=== PATIENT | female | born 1945 | race Caucasian/White ===

== ENCOUNTER 2023-09-30 18:47 | Inpatient (IN) ==
[2023-09-30] MEDS: KETOROLAC TROMETHAMINE 15 MG/ML VIAL IV ONE (19:45)
[2023-09-30] MEDS: ONDANSETRON INJ 2 MG/ML 2 ML VIAL IV STA (19:45)
[2023-09-30 19:57] LABS: Basophils # (auto) 0.05 K/uL (0.00-0.20); Basophils % (auto) 0.6 %; Eosinophils # (auto) 0.13 K/uL (0.00-0.50); Eosinophils % (auto) 1.4 %; Hemoglobin 12.2 g/dl (12.0-16.0); Immature Granulocytes # (auto) 0.06 K/uL (0.01-0.20); Immature Granulocytes % (auto) 0.7 %; Lymphocytes # (auto) 1.44 K/uL (1.20-3.40); Mean Corpuscular Hemoglobin 28.8 pg (25.0-34.0); Mean Corpuscular Hgb Conc 32.1 g/dL (32.0-36.0); Mean Corpuscular Volume 89.8 fL (80.0-100.0); Mean Platelet Volume 9.5 fL (9.4-12.4); Monocytes # (auto) 0.71 K/uL (0.11-0.59); Monocytes % (auto) 7.9 %; Neutrophils % (auto) 73.4 %; Platelet Count 468 K/uL (130-400); RDW Coefficient of Variation 13.2 % (11.5-14.5); RDW Standard Deviation 43.9 fL (36.4-46.3); Red Blood Count 4.23 M/uL (4.20-5.40); White Blood Count 8.99 K/ul (4.8-10.8)
[2023-09-30 20:14] LABS: Albumin Globulin Ratio 1.4 (0.9-2); Albumin Level 4.3 gm/dl (3.4-5.0); Bilirubin,Total 0.4 mg/dl (0.2-1.0); Calcium 10.1 mg/dl (8.6-10.3); Creatinine Clr Calc Pharmacy 39.6 ml/min; Est GFR (African American) 48.1 ml/min; Est GFR (Non-African American) 41.5 ml/min; Magnesium 2.1 mg/dl (1.7-2.4); Potassium 3.2 mmol/L (3.5-5.1); Total Protein 7.3 gm/dl (6.0-8.3)
[2023-09-30] MEDS: OPTIRAY 320 100ml IV ONE (20:49)
[2023-09-30 21:30] LABS: Appearance Urine Cloudy (Clear); Bacteria Urine Automated 2+ (None Seen); Bilirubin Urine Negative (Negative); Blood Urine Trace (Negative); Color Urine Yellow; Epithelial Cell Urine Auto 0-2 /hpf (0-2); Glucose Urine UA Negative (Negative); Granular Casts Urine Present /lpf (None Prsent); Ketones Urine Trace (Negative); Leukocyte Esterase Urine 3+ (Negative); Nitrite Urine Negative (Negative); Protein Urine 1+ (Negative); Specific Gravity Urine 1.015 (1.000-1.030); Urobilinogen Urine Negative (Negative); WBC Urine Automated >50 /hpf (0-5)
--- NOTE | 2023-09-30 22:47 | Emergency Department Note ---
Impression & Plan Diverticulitis, UTI (urinary tract infection) ED Provider Note NAME: RAMEZ RICCI AGE: 78 SEX: F : 1945 ARRIVES VIA: Walk-In INFORMANT: Patient, ED PROVIDER(S): Srinivasan Soto MD CHIEF COMPLAINT: Diarrhea, diverticulitis HPI: This is a 78-year-old female presenting for diarrhea/diverticulitis. Patient notes that she received antibiotics for 1 to 2 months after her knee surgery. This was from 03 August. She then noted that she has abdominal pain and was diagnosed with diverticulitis. She was given antibiotics for this is a well over the past few days. She is still taking antibiotics. She began having abdominal cramping as well as diarrhea. She notes she is pooping mucus. Her family concern that she may have C. difficile. She also told she may have a UTI. ROS: See above HPI for pertinent positives & negatives. A total of 10 systems reviewed and were otherwise negative. PAST MEDICAL HISTORY: See Below PAST SURGICAL HISTORY: See Below FAMILY HISTORY: See Below SOCIAL HISTORY: See Below HOME MEDICATIONS: See Below ALLERGIES: See Below VITALS: See Below PHYSICAL EXAMINATION: General: resting comfortably in no acute distress Head: Normocephalic and atraumatic Eyes: Normal inspection, extraocular muscles intact Ear, nose, throat: Normal external exam Neck: Normal range of motion Respiratory: lungs clear to auscultation bilaterally Cardiovascular: Regular rate/rhythm, no murmur GI: soft, nontender, no guarding or rebound Extremities: nontender, moves all extremities Neuro: The patient awake and alert, appropriately conversive, no focal deficits, symmetric faces Skin: Warm, dry, and intact MEDICAL DECISION MAKING: This is a 78-year-old female sent for diarrhea. Patient has previous evidence of diverticulitis. Currently taking antibiotics. Currently no pain after Toradol ministration. Otherwise we will do screening blood work and stool studies to rule out C. difficile and other viral illnesses. -Blood work is reviewed showing no leukocytosis or anemia. Slight hypokalemia noted. Creatinine 1.25. -Urinalysis does reveal signs of urinary tract infection at this time. -Currently pending stool studies. -CT imaging ordered at triage is currently pending as well -CT imaging does reveal possible acute diverticulitis despite antibiotics. Otherwise patient made aware of her low density of the adrenal gland lesion. -Patient made aware of findings and with UTI plus diverticulitis, did recommend inpatient admission. Patient agreeable to this plan. Discussed with hospitalist for admission. Differential diagnosis: Diverticulitis, C. difficile, toxic megacolon, SBO ER treatment provided: See below Diagnostics interpreted by me: ECG: None Cardiac Monitoring: An order was placed for continuous cardiac monitoring. The monitor shows a rate of 73 with sinus rhythm. Laboratory studies: As stated above and show below. Imaging studies: See below. Past Med/Surg History Problem List (Updated 10/04/23 @ 12:17 by Srinivasan Soto MD) UTI (urinary tract infection) (Acute) Elevated serum creatinine Adrenal mass Hypokalemia History of melanoma Diabetes mellitus Hyperlipidemia Hypertension Diverticulitis (Acute) Social History Smoking Status: Never smoker Second Hand Exposure: No; Do You Dip or Chew Tobacco: No; Tobacco Cessation Education Requested by Patient: No Hx Alcohol Use: No Hx Substance Use: No Preferred Language: Tamazight Communication Ability: Effective Chemist Pharmaceutical Required: No Beliefs That Will Affect Care: None Current Living Situation: Spouse Other Information That Helps Us Care for You: No Feels Safe at Home: Yes Safety Concerns: Feels Safe At This Time Assistive Devices: Cane and Walker Allergies Allergies Allergy/AdvReac Type Severity Reaction Status Date / Time No Known Allergies Allergy Verified 10/01/23 00:51 Home Meds Home Medications Medication Instructions Recorded Confirmed amlodipine 5 mg tablet 5 mg PO DAILY 10/01/23 10/01/23 ciprofloxacin HCl 500 mg tablet 500 mg PO TID 10/01/23 10/01/23 dulaglutide 0.75 mg/0.5 mL 0.75 mg subcut WK 10/01/23 10/01/23 subcutaneous pen injector (Trulicity) ezetimibe 10 mg tablet 10 mg PO DAILY 10/01/23 10/01/23 insulin glargine 100 unit/mL (3 44 unit subcut PM 10/01/23 10/01/23 mL) subcutaneous pen (Lantus Solostar U-100 Insulin) insulin lispro 100 unit/mL 0 unit subcut TIDM 10/01/23 10/01/23 subcutaneous pen (Humalog KwikPen (U-100) Insulin) latanoprost 0.005 % eye drops 1 drp OPB HS 10/01/23 10/01/23 levothyroxine 75 mcg tablet 75 mcg PO DAILYBB 10/01/23 10/01/23 lisinopril 20 mg tablet 20 mg PO DAILY 10/01/23 10/01/23 metformin 500 mg tablet 1,000 mg PO BID 10/01/23 10/01/23 metronidazole 500 mg tablet 500 mg PO BID 10/01/23 10/01/23 ondansetron 4 mg disintegrating 4 mg PO Q6H PRN Nausea 10/01/23 10/01/23 tablet rosuvastatin 40 mg tablet 40 mg PO DAILY 10/01/23 10/01/23 Results & Data (ED) Vital Signs Vital Signs - 24 hr 09/30/23 18:56 09/30/23 22:30 09/30/23 22:30 Temperature 36.4 C L Temperature Source Temporal Artery Scan Pulse Rate 86 Pulse Rate [Apical] 79 Pulse Rhythm [Apical] Regular Pulse Strength [Apical] Normal Respiratory Rate 16 20 Respiratory Effort / Characteristics Non-Labored Non-Labored Spontaneous Respiratory Depth Normal Normal Respiratory Pattern Regular Blood Pressure 161/59 H Blood Pressure [Right Arm] 149/70 H Blood Pressure Mean 93 Blood Pressure Mean [Right Arm] 96 Pulse Oximetry 97 94 98 Oxygen Delivery Method Room Air Room Air Room Air Sepsis Recent Fever Within 48 Hours No Sepsis New/Unexplained Change in Mental Status No Sepsis Action Taken by Nursing No Action Required 09/30/23 22:34 09/30/23 23:00 Temperature Temperature Source Pulse Rate 74 Pulse Rate [Apical] 75 Pulse Rhythm [Apical] Regular Pulse Strength [Apical] Respiratory Rate 18 Respiratory Effort / Characteristics Non-Labored Spontaneous Respiratory Depth Normal Respiratory Pattern Regular Blood Pressure Blood Pressure [Right Arm] 145/93 H Blood Pressure Mean Blood Pressure Mean [Right Arm] 110 Pulse Oximetry 96 Oxygen Delivery Method Room Air Sepsis Recent Fever Within 48 Hours Sepsis New/Unexplained Change in Mental Status Sepsis Action Taken by Nursing Laboratory Data 10/04/23 05:37 10/04/23 05:37 Lab Results 09/30/23 09/30/23 09/30/23 Range/Units 19:34 19:43 22:08 WBC 8.99 (4.8-10.8) K/ul RBC 4.23 (4.20-5.40) M/uL Hgb 12.2 (12.0-16.0) g/dl Hct 38.0 (37.0-47.0) % MCV 89.8 (80.0-100.0) fL MCH 28.8 (25.0-34.0) pg MCHC 32.1 (32.0-36.0) g/dL RDW Std Deviation 43.9 (36.4-46.3) fL RDW Coeff of Robbin 13.2 (11.5-14.5) % Plt Count 468 H (130-400) K/uL MPV 9.5 (9.4-12.4) fL Immature Gran % (Auto) 0.7 % Neut % (Auto) 73.4 % Lymph % (Auto) 16.0 % Butts % (Auto) 7.9 % Eos % (Auto) 1.4 % Baso % (Auto) 0.6 % Neut # (Auto) 6.60 H (1.40-6.50) K/uL Lymph # (Auto) 1.44 (1.20-3.40) K/uL Butts # (Auto) 0.71 H (0.11-0.59) K/uL Eos # (Auto) 0.13 (0.00-0.50) K/uL Baso # (Auto) 0.05 (0.00-0.20) K/uL Immature Gran # (Auto) 0.06 (0.01-0.20) K/uL Sodium 140 (136-145) mmol/L Potassium 3.2 L (3.5-5.1) mmol/L Chloride 106 (98-107) mmol/L Carbon Dioxide 23 (21-32) mmol/L Anion Gap 11 (3-11) BUN 15 (6-23) mg/dl Creatinine 1.25 H (0.6-1.2) mg/dl Est Cr Clr Drug Dosing 39.6 ml/min Est GFR ( Amer) 48.1 ml/min Est GFR (Non-Af Amer) 41.5 ml/min BUN/Creatinine Ratio 12.0 (10-20) Glucose 140 H (70-99(Fasting)) mg/dl Calcium 10.1 (8.6-10.3) mg/dl Magnesium 2.1 (1.7-2.4) mg/dl Total Bilirubin 0.4 (0.2-1.0) mg/dl AST 20 (13-39) U/L ALT 10 (7-52) U/L Alkaline Phosphatase 57 (34-104) U/L Total Protein 7.3 (6.0-8.3) gm/dl Albumin 4.3 (3.4-5.0) gm/dl Globulin 3.0 (2.5-4.0) gm/dl Albumin/Globulin Ratio 1.4 (0.9-2) Urine Color Yellow Urine Appearance Cloudy A (Clear) Urine pH 6.0 (4.5-7.5) Ur Specific [place] 1.015 (1.000-1.030) Urine Protein 1+ H (Negative) Urine Glucose (UA) Negative (Negative) Urine Ketones Trace H (Negative) Urine Blood Trace H (Negative) Urine Nitrite Negative (Negative) Urine Bilirubin Negative (Negative) Urine Urobilinogen Negative (Negative) Ur Leukocyte Esterase 3+ H (Negative) Urine WBC (Auto) >50 H (0-5) /hpf Urine RBC (Auto) 6-10 H (0-2) /hpf U Hyaline Cast (Auto) 6-10 H (0-2) /lpf U Epithel Cells (Auto) 0-2 (0-2) /hpf Urine Bacteria (Auto) 2+ H (None Seen) Granular Casts Present A (None Prsent) /lpf Stl C. cayetanensis PCR Not Detected (NotDetected) Stool Rotavirus A PCR Not Detected (NotDetected) Stl Adenov F 40/41 PCR Not Detected (NotDetected) Stool Astrovirus (PCR) Not Detected (NotDetected) Stool Campylobacter PCR Not Detected (NotDetected) Stl C. diff Tox B Gene Positive Cdiff Gene H (Neg) Stl C.difficile Tox A&B Negative Cdiff Toxin (Negative) Stool Cryptosporidium PCR Not Detected (NotDetected) Stl E.coli Shiga Tox PCR Not Detected (NotDetected) Stl Enterotoxigenic E PCR Not Detected (NotDetected) Stool EPEC (PCR) Not Detected (NotDetected) Stool EAEC (PCR) Not Detected (NotDetected) Stl E. histolytica PCR Not Detected (NotDetected) Stool Giardia Lamblia PCR Not Detected (NotDetected) Stool Salmonella PCR Not Detected (NotDetected) Stool Sapovirus (PCR) Not Detected (NotDetected) Stl P. shigelloides PCR Not Detected (NotDetected) Stl Shigella/EIEC PCR Not Detected (NotDetected) St Y.enterocolitica PCR Not Detected (NotDetected) Stool Vibrio (PCR) Not Detected (NotDetected) Stl Vibrio cholerae PCR Not Detected (NotDetected) Stl Norovirus GI/GII PCR Not Detected (NotDetected) Administered Medications Acetaminophen (Acetaminophen 325 Mg Tab) 650 mg PO Q4H PRN PRN Reason: pain/fever Stop: 10/31/23 01:18 Last Admin: 10/02/23 21:52 Dose: 650 mg Documented By: Admin: 10/01/23 16:22 Dose: 650 mg Documented By: Admin: 10/01/23 10:14 Dose: 650 mg Documented By: CS Amlodipine Besylate (Amlodipine Besylate 5 Mg Tab) 5 mg PO DAILY TIMOTHY Stop: 10/31/23 08:59 Last Admin: 10/04/23 07:15 Dose: 5 mg Documented By: Admin: 10/03/23 08:38 Dose: 5 mg Documented By: Admin: 10/02/23 08:27 Dose: 5 mg Documented By: Admin: 10/01/23 08:34 Dose: 5 mg Documented By: CS De La Torre Syrup (De La Torre Syrup 5 Ml Udp) 5 ml PO DAILY TIMOTHY Stop: 10/14/23 08:59 Last Admin: 10/04/23 07:16 Dose: 5 ml Documented By: RT Ezetimibe (Ezetimibe 10 Mg Tab) 10 mg PO DAILY TIMOTHY Stop: 10/31/23 08:59 Last Admin: 10/04/23 07:15 Dose: 10 mg Documented By: Admin: 10/03/23 08:39 Dose: 10 mg Documented By: Admin: 10/02/23 08:27 Dose: 10 mg Documented By: Admin: 10/01/23 08:35 Dose: 10 mg Documented By: CS Heparin Sodium (Porcine) (Heparin Sod 5,000 Unit/0.5 Ml Vial) 5,000 units SQ Q12 TIMOTHY Stop: 10/31/23 08:59 Last Admin: 10/04/23 07:14 Dose: 5,000 units Documented By: Admin: 10/03/23 19:31 Dose: 5,000 units Documented By: Admin: 10/03/23 08:45 Dose: 5,000 units Documented By: Admin: 10/02/23 19:52 Dose: 5,000 units Documented By: Admin: 10/02/23 08:32 Dose: 5,000 units Documented By: Admin: 10/01/23 21:25 Dose: 5,000 units Documented By: Admin: 10/01/23 08:36 Dose: 5,000 units Documented By: CS Piperacillin Sod/Tazobactam Sod (Zosyn) 4.5 gm in 100 mls @ 25 mls/hr IV Q8H TIMOTHY Stop: 10/11/23 05:59 Last Infusion: 10/04/23 09:50 Dose: Infused Documented By: Admin: 10/04/23 05:48 Dose: 25 mls/hr Documented By: Infusion: 10/04/23 02:01 Dose: Infused Documented By: Admin: 10/03/23 21:39 Dose: 25 mls/hr Documented By: Infusion: 10/03/23 17:26 Dose: Infused Documented By: Admin: 10/03/23 13:19 Dose: 25 mls/hr Documented By: Infusion: 10/03/23 09:34 Dose: Infused Documented By: Admin: 10/03/23 05:24 Dose: 25 mls/hr Documented By: Infusion: 10/03/23 01:45 Dose: Infused Documented By: Admin: 10/02/23 21:45 Dose: 25 mls/hr Documented By: Infusion: 10/02/23 17:50 Dose: Infused Documented By: Admin: 10/02/23 13:47 Dose: 25 mls/hr Documented By: Infusion: 10/02/23 09:50 Dose: Infused Documented By: Admin: 10/02/23 05:39 Dose: 25 mls/hr Documented By: Infusion: 10/02/23 02:07 Dose: Infused Documented By: Admin: 10/01/23 21:30 Dose: 25 mls/hr Documented By: Infusion: 10/01/23 18:20 Dose: Infused Documented By: Admin: 10/01/23 14:17 Dose: 25 mls/hr Documented By: Infusion: 10/01/23 10:19 Dose: Infused Documented By: Admin: 10/01/23 06:16 Dose: 25 mls/hr Documented By: ARLENE Insulin Aspart (Insulin Aspart Per Unit Charge) 0 units SC ACHS TIMOTHY Stop: 11/01/23 11:29 Last Admin: 10/04/23 11:59 Dose: 4 units Documented By: RT Co-signed By: ROBERTO Admin: 10/04/23 08:18 Dose: Not Given Documented By: Admin: 10/03/23 20:34 Dose: Not Given Documented By: ARLENE Co-signed By: BONIFACIO Admin: 10/03/23 16:42 Dose: 2 units Documented By: RT Co-signed By: CMV Admin: 10/03/23 12:04 Dose: 1 units Documented By: RT Co-signed By: ROBERTO Admin: 10/03/23 08:38 Dose: Not Given Documented By: Admin: 10/02/23 20:43 Dose: Not Given Documented By: ARLENE Co-signed By: MPS Admin: 10/02/23 17:18 Dose: 2 units Documented By: CS Co-signed By: MK Admin: 10/02/23 12:27 Dose: 1 units Documented By: CS Co-signed By: CMV Insulin Glargine (Lantus Per Unit Charge) 20 units SQ BID TIMOTHY Stop: 10/31/23 08:59 Last Admin: 10/04/23 08:20 Dose: 20 units Documented By: RT Co-signed By: ROBERTO Admin: 10/03/23 20:34 Dose: Not Given Documented By: Admin: 10/03/23 08:45 Dose: 20 units Documented By: RT Co-signed By: ROBERTO Admin: 10/02/23 20:45 Dose: Not Given Documented By: Admin: 10/02/23 08:34 Dose: 10 units Documented By: BRETT Co-signed By: NAVNEET Admin: 10/01/23 21:18 Dose: Not Given Documented By: Admin: 10/01/23 09:33 Dose: 10 units Documented By: CS Co-signed By: NAVNEET Latanoprost (Latanoprost 0.005% Op Soln 2.5 Ml Btl) 1 drops OPB HS TIMOTHY Stop: 10/31/23 20:59 Last Admin: 10/03/23 19:31 Dose: Not Given Documented By: Admin: 10/02/23 19:52 Dose: Not Given Documented By: Admin: 10/01/23 21:19 Dose: Not Given Documented By: MNO Levothyroxine Sodium (Levothyroxine Sodium 75 Mcg Tablet) 75 mcg PO DAILYBB TIMOTHY Stop: 10/31/23 06:29 Last Admin: 10/04/23 05:47 Dose: 75 mcg Documented By: Admin: 10/03/23 05:24 Dose: 75 mcg Documented By: Admin: 10/02/23 05:37 Dose: 75 mcg Documented By: Admin: 10/01/23 06:16 Dose: 75 mcg Documented By: TKB Lisinopril (Lisinopril 20 Mg Tab) 20 mg PO DAILY TIMOTHY Stop: 11/02/23 08:59 Last Admin: 10/04/23 07:15 Dose: 20 mg Documented By: Admin: 10/03/23 08:39 Dose: 20 mg Documented By: RT Melatonin (Melatonin 3 Mg Tab) 3 mg PO HS PRN PRN Reason: Insomnia Stop: 10/31/23 01:18 Last Admin: 10/01/23 21:26 Dose: 3 mg Documented By: Admin: 10/01/23 03:10 Dose: 3 mg Documented By: TKB Polyethylene Glycol (Polyethylene (Miralax) 17 Gm Pack) 17 gm PO DAILY TIMOTHY Stop: 11/03/23 10:14 Last Admin: 10/04/23 10:08 Dose: 17 gm Documented By: RT Rosuvastatin Calcium (Rosuvastatin Calcium 20 Mg Tab) 40 mg PO DAILY TIMOTHY Stop: 10/31/23 08:59 Last Admin: 10/04/23 07:15 Dose: 40 mg Documented By: Admin: 10/03/23 08:39 Dose: 40 mg Documented By: Admin: 10/02/23 08:27 Dose: 40 mg Documented By: Admin: 10/01/23 08:34 Dose: 40 mg Documented By: CS Tramadol HCl (Tramadol Hcl 50 Mg Tablet) 50 mg PO Q4H PRN PRN Reason: Pain Stop: 10/31/23 18:07 Last Admin: 10/01/23 21:26 Dose: 50 mg Documented By: EFRAIN Vancomycin HCl (Vancomycin Hcl 125 Mg/2.5ml Soln) 125 mg PO DAILY TIMOTHY Stop: 11/03/23 08:59 Last Admin: 10/04/23 07:17 Dose: 125 mg Documented By: RT Discontinued Medications De La Torre Syrup (De La Torre Syrup 5 Ml Udp) 5 ml PO Q6 TIMOTHY Stop: 10/11/23 05:59 Last Admin: 10/03/23 12:04 Dose: 5 ml Documented By: Admin: 10/03/23 05:23 Dose: 5 ml Documented By: Admin: 10/03/23 00:02 Dose: 5 ml Documented By: Admin: 10/02/23 17:17 Dose: 5 ml Documented By: Admin: 10/02/23 12:19 Dose: 5 ml Documented By: Admin: 10/02/23 05:38 Dose: 5 ml Documented By: Admin: 10/02/23 00:38 Dose: 5 ml Documented By: Admin: 10/01/23 18:18 Dose: 5 ml Documented By: Admin: 10/01/23 12:02 Dose: 5 ml Documented By: Admin: 10/01/23 06:16 Dose: 5 ml Documented By: ARLENE De La Torre Syrup (De La Torre Syrup 5 Ml Udp) 5 ml PO NOW STA Stop: 10/01/23 02:10 Last Admin: 10/01/23 03:11 Dose: 5 ml Documented By: ARLENE Piperacillin Sod/Tazobactam Sod (Zosyn) 4.5 gm in 100 mls @ 200 mls/hr IV NOW ONE Stop: 10/01/23 00:49 Last Infusion: 10/01/23 01:24 Dose: Infused Documented By: Admin: 10/01/23 00:49 Dose: 200 mls/hr Documented By: OSVALDO Potassium Chloride (K Willie / Wtr) 10 meq in 100 mls @ 100 mls/hr IV Q1H TIMOTHY Stop: 10/01/23 05:44 Last Infusion: 10/01/23 07:24 Dose: Infused Documented By: Admin: 10/01/23 06:16 Dose: 100 mls/hr Documented By: TKEna Infusion: 10/01/23 06:12 Dose: Infused Documented By: TKEna Admin: 10/01/23 05:12 Dose: 100 mls/hr Documented By: Infusion: 10/01/23 05:12 Dose: Infused Documented By: Admin: 10/01/23 04:13 Dose: 100 mls/hr Documented By: Infusion: 10/01/23 04:13 Dose: Infused Documented By: Admin: 10/01/23 03:14 Dose: 100 mls/hr Documented By: TKB Sodium Chloride (Nss) 1,000 mls @ 100 mls/hr IV .Q10H TIMOTHY Stop: 10/31/23 01:29 Last Infusion: 10/02/23 15:25 Dose: Infused Documented By: Admin: 10/02/23 05:38 Dose: 100 mls/hr Documented By: Infusion: 10/02/23 05:38 Dose: Infused Documented By: Admin: 10/01/23 21:31 Dose: 100 mls/hr Documented By: Infusion: 10/01/23 21:31 Dose: Infused Documented By: Admin: 10/01/23 12:10 Dose: 100 mls/hr Documented By: Infusion: 10/01/23 12:10 Dose: Infused Documented By: Admin: 10/01/23 02:34 Dose: 100 mls/hr Documented By: TKB Potassium Chloride (K Willie / Wtr) 10 meq in 100 mls @ 100 mls/hr IV Q1H TIMOTHY Stop: 10/02/23 11:14 Last Infusion: 10/02/23 12:15 Dose: Infused Documented By: Admin: 10/02/23 10:53 Dose: 100 mls/hr Documented By: Infusion: 10/02/23 10:35 Dose: Infused Documented By: Admin: 10/02/23 09:35 Dose: 100 mls/hr Documented By: Infusion: 10/02/23 09:22 Dose: Infused Documented By: Admin: 10/02/23 08:22 Dose: 100 mls/hr Documented By: CS Potassium Chloride (K Willie / Wtr) 10 meq in 100 mls @ 100 mls/hr IV Q1H TIMOTHY Stop: 10/03/23 10:59 Last Infusion: 10/03/23 13:31 Dose: Infused Documented By: Admin: 10/03/23 12:28 Dose: 100 mls/hr Documented By: Infusion: 10/03/23 12:21 Dose: Infused Documented By: Admin: 10/03/23 11:21 Dose: 100 mls/hr Documented By: Infusion: 10/03/23 11:13 Dose: Infused Documented By: Admin: 10/03/23 10:13 Dose: 100 mls/hr Documented By: RT Magnesium Sulfate/Dextrose (Magnesium Sulfate / D5w) 1 gm in 100 mls @ 50 mls/hr IV ONE ONE Stop: 10/03/23 09:51 Last Infusion: 10/03/23 12:32 Dose: Infused Documented By: Admin: 10/03/23 10:14 Dose: 50 mls/hr Documented By: RT Insulin Aspart (Insulin Aspart Per Unit Charge) 0 units SC Q6 TIMOTHY Stop: 10/31/23 05:59 Last Admin: 10/02/23 05:39 Dose: Not Given Documented By: EFRAIN Co-signed By: JANE Admin: 10/02/23 00:01 Dose: Not Given Documented By: JANE Co-signed By: EFRAIN Admin: 10/01/23 18:13 Dose: Not Given Documented By: Admin: 10/01/23 12:04 Dose: Not Given Documented By: Admin: 10/01/23 06:06 Dose: Not Given Documented By: EFRAIN Co-signed By: ARLENE Ioversol (Optiray 320 100ml) 92 ml IV ONCE ONE Stop: 09/30/23 20:49 Last Admin: 09/30/23 20:49 Dose: 92 ml Documented By: GEN Ketorolac Tromethamine (Ketorolac Tromethamine 15 Mg/Ml Vial) 10 mg IV NOW ONE Stop: 09/30/23 19:01 Last Admin: 09/30/23 19:45 Dose: 10 mg Documented By: МАРИЯ Ondansetron HCl (Ondansetron Inj 2 Mg/Ml 2 Ml Vial) 4 mg IV NOW STA Stop: 09/30/23 19:00 Last Admin: 09/30/23 19:45 Dose: 4 mg Documented By: МАРИЯ Potassium Chloride (Potassium Chloride Crtab 20 Meq Tabcr) 40 meq PO NOW STA Stop: 10/03/23 07:52 Last Admin: 10/03/23 10:42 Dose: 40 meq Documented By: RT Potassium Chloride (Potassium Chloride Crtab 20 Meq Tabcr) 40 meq PO NOW STA Stop: 10/04/23 10:00 Last Admin: 10/04/23 10:08 Dose: 40 meq Documented By: RT Vancomycin HCl (Vancomycin Hcl 125 Mg/2.5ml Soln) 125 mg PO Q6 TIMOTHY Stop: 10/11/23 05:59 Last Admin: 10/03/23 12:04 Dose: 125 mg Documented By: Admin: 10/03/23 05:22 Dose: 125 mg Documented By: Admin: 10/03/23 00:02 Dose: 125 mg Documented By: Admin: 10/02/23 17:17 Dose: 125 mg Documented By: Admin: 10/02/23 12:19 Dose: 125 mg Documented By: Admin: 10/02/23 05:38 Dose: 125 mg Documented By: Admin: 10/02/23 00:38 Dose: 125 mg Documented By: Admin: 10/01/23 18:16 Dose: 125 mg Documented By: Admin: 10/01/23 12:02 Dose: 125 mg Documented By: Admin: 10/01/23 06:16 Dose: 125 mg Documented By: TKB Vancomycin HCl (Vancomycin Hcl 125 Mg/2.5ml Soln) 125 mg PO NOW STA Stop: 10/01/23 02:10 Last Admin: 10/01/23 03:11 Dose: 125 mg Documented By: TKB Imaging Data Radiologist's Impression: Abdomen/Pelvis CT 09/30/23 19:02 Exam(s): CT ABDOMEN + PELVIS With Contrast IV Amt: 92 ML OPTIRAY 320 EXAM: CT Abdomen and Pelvis With Intravenous Contrast CLINICAL HISTORY: Reason for exam: abdominal pain; diarrhea; hx of diverticulitis. TECHNIQUE: Axial computed tomography images of the abdomen and pelvis with intravenous contrast. Automated exposure control was utilized for the study. A dose lowering technique was utilized adhering to the principles of ALARA. CONTRAST: Patient received 92 ML OPTIRAY 320 of IV contrast COMPARISON: No relevant prior studies available. FINDINGS: Lung bases: Partially visualized, there is atelectasis and/or scarring noted in the lingula.. ABDOMEN: Liver: No mass. Gallbladder and bile ducts: No calcified stones. No ductal dilation. Pancreas: No mass. No ductal dilation. Spleen: No splenomegaly. Adrenals: The left adrenal gland is unremarkable. There is a 5.4 cm low-density lesion in the right adrenal gland. Kidneys and ureters: No hydronephrosis. There are rounded lucencies noted in both kidneys. Stomach and bowel: There is air and fluid noted within the stomach. There is air and stool noted in the colon. There are diverticula present on the colon. There is thickening of the sigmoid colon wall with surrounding inflammatory changes.. PELVIS: Appendix: The appendix is not visualized.. Bladder: No calculi are noted within the bladder.. Reproductive: Unremarkable as visualized. ABDOMEN and PELVIS: Intraperitoneal space: No free air. No significant fluid collection. Bones/joints: There are degenerative changes in the spine. There is a bilateral spondylolysis with a grade 1 spondylolisthesis of L5 on S1.. Soft tissues: Unremarkable. Vasculature: . No abdominal aortic aneurysm. Lymph nodes: No enlarged lymph nodes. IMPRESSION: There are diverticula present on the colon. There is thickening of the sigmoid colon wall with surrounding inflammatory changes.. This may represent acute diverticulitis. There is a 5.4 cm low-density lesion in the right adrenal gland. This may represent an adenoma. A more aggressive process cannot be excluded on this exam. Recommend correlation with a nonemergent contrast-enhanced MRI for further evaluation. There are possible bilateral renal cysts. Electronically signed by: Donovan Choudhury MD 09/30/23 22:57 PM Discharge Plan Visit Data Chief Complaint: GI Assessment Stated Complaint: GI PROBLEMS ED Provider: Srinivasan Soto Discharge Problem: Diverticulitis, UTI (urinary tract infection) Patient Disposition: Admitted As Inpatient Discharge Instructions Interventions: ED Discharge Assessment Last Done: 10/01/23 02:25
--- NOTE | 2023-09-30 22:58 | CT Scan Report ---
Exam(s): CT ABDOMEN + PELVIS With Contrast IV Amt: 92 ML OPTIRAY 320 EXAM: CT Abdomen and Pelvis With Intravenous Contrast CLINICAL HISTORY: Reason for exam: abdominal pain; diarrhea; hx of diverticulitis. TECHNIQUE: Axial computed tomography images of the abdomen and pelvis with intravenous contrast. Automated exposure control was utilized for the study. A dose lowering technique was utilized adhering to the principles of ALARA. CONTRAST: Patient received 92 ML OPTIRAY 320 of IV contrast COMPARISON: No relevant prior studies available. FINDINGS: Lung bases: Partially visualized, there is atelectasis and/or scarring noted in the lingula.. ABDOMEN: Liver: No mass. Gallbladder and bile ducts: No calcified stones. No ductal dilation. Pancreas: No mass. No ductal dilation. Spleen: No splenomegaly. Adrenals: The left adrenal gland is unremarkable. There is a 5.4 cm low-density lesion in the right adrenal gland. Kidneys and ureters: No hydronephrosis. There are rounded lucencies noted in both kidneys. Stomach and bowel: There is air and fluid noted within the stomach. There is air and stool noted in the colon. There are diverticula present on the colon. There is thickening of the sigmoid colon wall with surrounding inflammatory changes.. PELVIS: Appendix: The appendix is not visualized.. Bladder: No calculi are noted within the bladder.. Reproductive: Unremarkable as visualized. ABDOMEN and PELVIS: Intraperitoneal space: No free air. No significant fluid collection. Bones/joints: There are degenerative changes in the spine. There is a bilateral spondylolysis with a grade 1 spondylolisthesis of L5 on S1.. Soft tissues: Unremarkable. Vasculature: . No abdominal aortic aneurysm. Lymph nodes: No enlarged lymph nodes. IMPRESSION: There are diverticula present on the colon. There is thickening of the sigmoid colon wall with surrounding inflammatory changes.. This may represent acute diverticulitis. There is a 5.4 cm low-density lesion in the right adrenal gland. This may represent an adenoma. A more aggressive process cannot be excluded on this exam. Recommend correlation with a nonemergent contrast-enhanced MRI for further evaluation. There are possible bilateral renal cysts. Electronically signed by: Donovan Choudhury MD 09/30/23 22:57 PM
[2023-09-30 23:47] LABS: Adenovirus F 40/41 PCR Not Detected (NotDetected); Astrovirus PCR Not Detected (NotDetected); Campylobacter PCR Not Detected (NotDetected); Cryptosporidium PCR Not Detected (NotDetected); Cyclospora cayetanensis PCR Not Detected (NotDetected); Entamoeba histolytica PCR Not Detected (NotDetected); Enteroaggregative E.coli(EAEC) Not Detected (NotDetected); Enteropathogenic E.coli (EPEC) Not Detected (NotDetected); Enterotoxigenic E.coli (ETEC) Not Detected (NotDetected); Giardia lamblia PCR Not Detected (NotDetected); Norovirus GI/GII PCR Not Detected (NotDetected); Plesiomonas shigelloides PCR Not Detected (NotDetected); Rotavirus A PCR Not Detected (NotDetected); Salmonella PCR Not Detected (NotDetected); Sapovirus PCR Not Detected (NotDetected); Shiga-like Toxin E.coli (STEC) Not Detected (NotDetected); Shigella/Enteroinvasive E.coli Not Detected (NotDetected); Vibrio cholerae PCR Not Detected (NotDetected); Vibrio species PCR Not Detected (NotDetected); Yersinia enterocolitica PCR Not Detected (NotDetected)
[2023-09-30 23:59] LABS: Cdiff Antigen Negative; Cdiff Toxin A+B Negative Cdiff Toxin (Negative); Cdiff Toxin B Gene (2yr or >) Positive Cdiff Gene (Neg)
--- NOTE | 2023-10-01 00:37 | History & Physical Report ---
Date of Service October 01, 2023 Assessment & Plan (1) Diverticulitis: Plan: Pt is a 78 yo female with PMH of HLD, HTN, DM, and melanoma on her left leg (s/p resection and interferon tx ~20 yrs) presenting d/t continued abdominal pain. Diverticulitis - pt s/p flagyl and cipro as an outpatient with no improvement in symptoms - lab work significant for no leukocytosis, plt 468, K 3.2, and Cr 1.25 - stool studies negative aside from c diff gene positive (toxin neg) - CTAP showing inflammation of the sigmoid colon consistent with acute diverticulitis; it also notes a 5.4cm lesion of the right adrenal gland - s/p zosyn in the ED; will continue upon admission - since pt c diff gene positive and she will be getting zosyn for her diverticulitis, will add PO vanco prophylactically - keep NPO except for meds/sips; IVF at 100 mL/hr while NPO - pt's family requesting local GI referral upon discharge Hypokalemia - in the setting of poor PO intake - 40 meq IV K ordered on admission - recheck with AM labs HTN - continue home amlodipine - will hold lisinopril in the setting of elevated Cr; unsure if this is pt's baseline or if ALEJANDRA- per pt, she has no hx of CKD DM - pt takes 48u of glargine at home each night in addition to 10u of short acting insulin at breakfast and lunch and 16u with dinner - pt also takes dulaglutide and metformin; will hold while hospitalized - will start with insulin glargine 20u BID and SSI; adjust as necessary HLD - continue home ezetimibe and rosuvastatin Adrenal mass - CTAP showing right adrenal mass measuring 5.4cm - per pt and family, this has not been found before; pt does have a remote hx of melanoma (~20 yrs ago, tx with excision and interferon) - recommend nonemergent MRI w/ contrast for f/u Diet: NPO, IVF at 100mL/hr Code: full DVT ppx: heparin BID Dispo: admit to med/surg (2) Hypertension: (3) Hyperlipidemia: (4) Diabetes mellitus: (5) History of melanoma: (6) Hypokalemia: (7) Adrenal mass: (8) Elevated serum creatinine: History of Present Illness Chief Complaint: abdominal pain Primary Care Provider: Lexus Reed Pt is a 78 yo female with PMH of HLD, HTN, DM, and melanoma on her left leg (s/p resection and interferon tx ~20 yrs) presenting d/t continued abdominal pain. Pt note she has been sick for the last 2 weeks with abdominal pain, abdominal pressure, lack of appetite, and nausea/vomiting. She was evaluated ~a week ago at an outside ER where she was told she has diverticulosis and was given antibiotics (cipro and flagyl x7 days) to take in case she worsened. She began taking the antibiotics and has almost completed both courses (only 3 pills left in each bottle). However, her symptoms have not improved which prompted her to present to the ER. She endorses continued left sided abdominal pain, N/V, and mucous discharge from her rectum. She thought she had a UTI due to the abdominal pressure but denies burning with urination and increased frequency of urination. Pt's family requesting a referral for local GI after hospital stay. Pt notes she has never had a colonoscopy and does not want one. In the ER, pt was given ketorolac 10 mg IV x1, zofran 4 mg IV x1, and zosyn x1. Allergies Allergy/AdvReac Type Severity Reaction Status Date / Time No Known Allergies Allergy Verified 10/01/23 00:51 Home Medications Medication Instructions Recorded Confirmed Type amlodipine 5 mg tablet 5 mg PO DAILY 10/01/23 10/01/23 History ciprofloxacin HCl 500 mg tablet 500 mg PO TID 10/01/23 10/01/23 History dulaglutide 0.75 mg/0.5 mL 0.75 mg subcut WK 10/01/23 10/01/23 History subcutaneous pen injector (Trulicity) ezetimibe 10 mg tablet 10 mg PO DAILY 10/01/23 10/01/23 History insulin glargine 100 unit/mL (3 44 unit subcut PM 10/01/23 10/01/23 History mL) subcutaneous pen (Lantus Solostar U-100 Insulin) insulin lispro 100 unit/mL 0 unit subcut TIDM 10/01/23 10/01/23 History subcutaneous pen (Humalog KwikPen (U-100) Insulin) latanoprost 0.005 % eye drops 1 drp OPB HS 10/01/23 10/01/23 History levothyroxine 75 mcg tablet 75 mcg PO DAILYBB 10/01/23 10/01/23 History lisinopril 20 mg tablet 20 mg PO DAILY 10/01/23 10/01/23 History metformin 500 mg tablet 1,000 mg PO BID 10/01/23 10/01/23 History metronidazole 500 mg tablet 500 mg PO BID 10/01/23 10/01/23 History ondansetron 4 mg disintegrating 4 mg PO Q6H PRN Nausea 10/01/23 10/01/23 History tablet rosuvastatin 40 mg tablet 40 mg PO DAILY 10/01/23 10/01/23 History Past Med/Surg History Problem List (Updated 10/01/23 @ 02:13 by Kaia Hu DO) Elevated serum creatinine Adrenal mass Hypokalemia History of melanoma Diabetes mellitus Hyperlipidemia Hypertension Diverticulitis Social History Smoking Status: Never smoker Second Hand Exposure: No; Do You Dip or Chew Tobacco: No; Tobacco Cessation Education Requested by Patient: No Hx Alcohol Use: No Hx Substance Use: No Preferred Language: Khmer Communication Ability: Effective Hand Stripper Required: No Beliefs That Will Affect Care: None Current Living Situation: Spouse Other Information That Helps Us Care for You: No Feels Safe at Home: Yes Safety Concerns: Feels Safe At This Time Assistive Devices: None Review of Systems Review of Systems: As per HPI Physical Exam Constitutional: NAD, vitals WNL. Eyes: Conjunctivae normal. Respiratory: CTA bilaterally. Non labored breathing. No rhonchi, wheezing, or crackles. Cardiovascular: RRR. No murmurs noted. No LE edema. Gastrointestinal (Abdomen): Tender in LLQ, +BS. No masses noted. Skin: No rashes or skin lesions noted. Neurologic: Sensation grossly intact. No FND appreciated. Psychiatric: Speech of normal pace and content. Mood and affect congruent. Results & Data Results & Data Vital Signs (Past 12 Hours) Vital Signs Temp Pulse Pulse Resp BP BP Pulse Ox 09/30/23 23:00 75 18 145/93 H 96 09/30/23 22:34 74 09/30/23 22:30 98 09/30/23 22:30 79 20 149/70 H 94 09/30/23 18:56 36.4 C L 86 16 161/59 H 97 O2 Del Method 09/30/23 23:00 Room Air 09/30/23 22:34 09/30/23 22:30 Room Air 09/30/23 22:30 Room Air 09/30/23 18:56 Room Air Supervising Physician Co-Signing Physician Notes Attending addendum: I have physically seen this patient, have supervised the medical residents activities, and agree with the H&P unless as otherwise noted. Assessment and Plan: Sigmoid diverticulitis/C. difficile gene positive, C. difficile toxin negative- Failure of outpatient Cipro and Flagyl taken orally for [address] scan abdomen pelvis shows inflammation of the sigmoid colon consistent with acute diverticulitis Begun Zosyn 4.5 g IV in the ED, and will continue Place on vancomycin 5 mg p.o. every 6 hours as prevention NPO except sips and meds NSS at 100 mL per hour Urinary tract infection- Follow urine culture and sensitivity Zosyn above will cover Hypokalemia/renal insufficiency- Potassium 3.2, creatinine 1.25, GFR 41.5 IV potassium ordered as replacement Hold lisinopril Recheck laboratories in a.m. Hypertension- Continue amlodipine Temporarily hold lisinopril as noted Diabetes mellitus- Holding dulaglutide and metformin while in hospital Adjustment in glargine as noted, and placed on Accu-Cheks with NovoLog SSI 5.4 cm right adrenal adenoma- Recommendation by radiology to follow with MRI not emergently Resident Activity Tracking Resident Involvement: Resident Care Provided Care Provided: Adult [facility]
[2023-10-01] MEDS: PIPERACILLIN/TAZOBACTAM 4.5 GM/100 ML BAG IV ONE (00:49)
[2023-10-01] MEDS ORDERED: ONDANSETRON INJ 2 MG/ML 2 ML VIAL IV PRN (01:19)
[2023-10-01] MEDS ORDERED: DEXTROSE 50% 50 ML SYRINGE IV PRN (02:22)
[2023-10-01] MEDS ORDERED: GLUCOSE 40% GEL 15 GM TUBE PO PRN (02:22)
[2023-10-01] MEDS ORDERED: GLUCOSE 10 TAB/TUBE PO PRN (02:22)
[2023-10-01] MEDS ORDERED: GLUCAGON FOR INJ 1 MG VIAL SQ PRN (02:22)
[2023-10-01] MEDS ORDERED: CARBOHYDRATES FOR HYPOGLYCEMIA PO PRN (02:22)
[2023-10-01] MEDS: SODIUM CHLORIDE 0.9% 1,000 ML IV SCH (02:34)
[2023-10-01] MEDS: MELATONIN 3 MG TAB PO PRN (03:10)
[2023-10-01] MEDS: VANCOMYCIN HCL 125 MG/2.5ML SOLN PO STA (03:11)
[2023-10-01] MEDS: CHERRY SYRUP 5 ML UDP PO STA (03:11)
[2023-10-01] MEDS: POTASSIUM CHLORIDE / WTR 10 MEQ/100 ML PLCT IV SCH (03:14)
--- NOTE | 2023-10-01 05:14 | Billing Data ---
Date of Service October 01, 2023 Coding Level of Care Code 29046 INT INP/OBS CARE
[2023-10-01 06:03] LABS: Hematocrit (blood only) 35.2 % (37.0-47.0); Hemoglobin 11.2 g/dl (12.0-16.0); Mean Corpuscular Hemoglobin 28.9 pg (25.0-34.0); Mean Corpuscular Hgb Conc 31.8 g/dL (32.0-36.0); Mean Corpuscular Volume 90.7 fL (80.0-100.0); Mean Platelet Volume 9.2 fL (9.4-12.4); Platelet Count 423 K/uL (130-400); RDW Coefficient of Variation 13.2 % (11.5-14.5); RDW Standard Deviation 44.4 fL (36.4-46.3); Red Blood Count 3.88 M/uL (4.20-5.40); White Blood Count 7.82 K/ul (4.8-10.8)
[2023-10-01] MEDS: INSULIN ASPART PER UNIT CHARGE SC SCH (06:06)
[2023-10-01] MEDS: LEVOTHYROXINE SODIUM 75 MCG TABLET PO SCH (06:16)
[2023-10-01] MEDS: PIPERACILLIN/TAZOBACTAM 4.5 GM/100 ML BAG IV SCH (06:16)
[2023-10-01] MEDS: CHERRY SYRUP 5 ML UDP PO SCH (06:16)
[2023-10-01] MEDS: VANCOMYCIN HCL 125 MG/2.5ML SOLN PO SCH (06:16)
[2023-10-01 06:23] LABS: BUN Creatinine Ratio 11.4 (10-20); Calcium 9.1 mg/dl (8.6-10.3); Creatinine Clr Calc Pharmacy 37.5 ml/min; Est GFR (Non-African American) 38.8 ml/min; Potassium 3.6 mmol/L (3.5-5.1)
[2023-10-01] MEDS: amLODIPine BESYLATE 5 MG TAB PO SCH (08:34)
[2023-10-01] MEDS: ROSUVASTATIN CALCIUM 20 MG TAB PO SCH (08:34)
[2023-10-01] MEDS: EZETIMIBE 10 MG TAB PO SCH (08:35)
[2023-10-01] MEDS: HEPARIN SOD 5,000 UNIT/0.5 ML VIAL SQ SCH (08:36)
[2023-10-01] MEDS: LANTUS PER UNIT CHARGE SQ SCH (09:33)
[2023-10-01] MEDS ORDERED: oxyCODONE HCL IR 5 MG TAB (IMMEDIATE RELEASE) PO PRN (10:09)
[2023-10-01] MEDS: ACETAMINOPHEN 325 MG TAB PO PRN (10:14)
--- NOTE | 2023-10-01 14:02 | Hospitalist Progress Note ---
Date of Service October 01, 2023 Assessment & Plan (1) Diverticulitis: Plan: Pt is a 78 yo female with PMH of HLD, HTN, DM, and melanoma on her left leg (s/p resection and interferon tx ~20 yrs) presenting d/t continued abdominal pain. - CTAP showing inflammation of the sigmoid colon consistent with acute diverticulitis; it also notes a 5.4cm lesion of the right adrenal gland - pt s/p 1 week of flagyl and cipro as an outpatient with no improvement in symptoms - no leukocytosis - stool studies negative aside from c diff gene positive (toxin neg) - no hx of cdiff - will empirically treat with PO vanco q6H - continue zosyn - keep NPO except for meds/sips; IVF at 100 mL/hr while NPO - pt's family requesting local GI referral upon discharge (pt lives in the [facility]) Potassium repleted. PT/OT (2) Hypertension: Plan: Also with elevated serum creatinine - continue home amlodipine - will hold lisinopril in the setting of elevated Cr; unsure if this is pt's baseline or if ALEJANDRA- per pt, she has no hx of CKD but was told her kidney function was bumped when she was outside ER (3) Diabetes mellitus: Plan: Home regiment (held) 48u of glargine HS, 10u of short acting insulin at breakfast & lunch and 16u with dinner, weekly dulaglutide, and metformin - will start with insulin glargine 20u BID and SSI - patient states that she doesn't normally eat 3 meals a day and only take short acting insulin once a day (4) Adrenal mass: Plan: - CTAP showing right adrenal mass measuring 5.4cm - per pt and family, this has not been found before; pt does have a remote hx of melanoma (~20 yrs ago, tx with excision and interferon) - recommend nonemergent MRI w/ contrast for f/u Plan Chronic stable medical problems: * HLD - continue home ezetimibe and rosuvastatin * Hx of melanoma * hypothyroid - continue synthroid Dispo: continued inpatient stay, hopeful to advance diet tomorrow DVT proh: heparin BID offered to call patient family and she declined this Admission and Anticipated Discharge Date Admission Date: October 01, 2023 Supervising Physician Co-Signing Physician Notes PA Supervision Note: I did not personally see or examine the patient today, but I verified all munguia points of STACIA Brooks's assessment and plan with the following exceptions/additions: None Subjective patient lying in bed states she has not been told her kidney function was elevated until her most recent trip to the ER states she is always a little off balance, but does not use assistive devices at home poor appetite with abdominal pain over the last week Review of Systems Review of Systems: All systems reviewed & are unremarkable except as noted in Subjective Physical Exam Physical Exam: General: NAD, VS as above Resp: normal respiratory effort, lungs clear to auscultation CV: RRR, no murmur, Abd: normal bowel sounds, soft, tender LLQ Extremities: Moves all extremities, no edema Neuro: A&O x3, Skin: intact, no lesions noted Results & Data Results & Data Vital Signs (Past 12 Hours) Vital Signs Temp Pulse Resp BP Pulse Ox O2 Del Method 10/01/23 07:14 36.4 C L 75 18 148/80 H 96 Room Air 10/01/23 02:15 36.5 C 72 18 167/92 H 99 Room Air Laboratory Results cbc and chemistry reviewed PG Care Time/CCT Total # of Minutes Spent Total Time Spent with Patient: Total time spent is greater than 50% in coordination of care (as documented) at patient's floor/unit and/or counseling patient: Coding Level of Care Code None Diagnoses Diverticulitis K57.92 Hypertension I10 Diabetes mellitus E11.9 Adrenal mass E27.8
[2023-10-01] MEDS: LATANOPROST 0.005% OP SOLN 2.5 ML BTL OPB SCH (21:19)
[2023-10-01] MEDS: traMADol HCL 50 MG TABLET PO PRN (21:26)
[2023-10-02 07:35] LABS: Hematocrit (blood only) 34.9 % (37.0-47.0); Hemoglobin 11.3 g/dl (12.0-16.0); Mean Corpuscular Hemoglobin 29.6 pg (25.0-34.0); Mean Corpuscular Hgb Conc 32.4 g/dL (32.0-36.0); Mean Corpuscular Volume 91.4 fL (80.0-100.0); Mean Platelet Volume 9.3 fL (9.4-12.4); Platelet Count 412 K/uL (130-400); RDW Coefficient of Variation 13.2 % (11.5-14.5); RDW Standard Deviation 44.5 fL (36.4-46.3); Red Blood Count 3.82 M/uL (4.20-5.40); White Blood Count 8.56 K/ul (4.8-10.8)
[2023-10-02 07:51] LABS: Calcium 8.7 mg/dl (8.6-10.3); Creatinine Clr Calc Pharmacy 44.2 ml/min; Est GFR (African American) 54.9 ml/min; Est GFR (Non-African American) 47.3 ml/min; Potassium 3.2 mmol/L (3.5-5.1)
[2023-10-02] MEDS: POTASSIUM CHLORIDE / WTR 10 MEQ/100 ML PLCT IV SCH (08:22)
[2023-10-02] MEDS ORDERED: Nursing to Pharmacy Communication SCH (10:30)
[2023-10-02] MEDS: INSULIN ASPART PER UNIT CHARGE SC SCH (12:27)
--- NOTE | 2023-10-02 13:59 | Hospitalist Progress Note ---
Date of Service October 02, 2023 Assessment & Plan (1) Diverticulitis: Plan: Pt is a 78 yo female with PMH of HLD, HTN, DM, and melanoma on her left leg (s/p resection and interferon tx ~20 yrs) presenting d/t continued abdominal pain. - CTAP showing inflammation of the sigmoid colon consistent with acute diverticulitis; it also notes a 5.4cm lesion of the right adrenal gland - pt s/p 1 week of flagyl and cipro as an outpatient with no improvement in symptoms - no leukocytosis - stool studies negative aside from c diff gene positive (toxin neg) - no hx of cdiff - will empirically treat with PO vanco q6H - continue zosyn - start on clear liquid diet, advance as tolerated to low fiber/diabetic diet - pt's family requesting local GI referral upon discharge - spoke with daughter, Brittney, she would like referral placed to [facility] at discharge Potassium replaced IV 10/01 PT/OT - OT recommends return home, PT evaluation pending AM CBC, BMP, mag (2) Hypertension: Plan: Also with elevated serum creatinine - continue home amlodipine - lisinopril initially held due to elevated serum creatinine, this has improved and lisinopril will be resumed for 10/02 (3) Diabetes mellitus: Plan: Home regiment (held) 48u of glargine HS, 10u of short acting insulin at breakfast & lunch and 16u with dinner, weekly dulaglutide, and metformin - will start with insulin glargine 20u BID and SSI - patient states that she doesn't normally eat 3 meals a day and only take short acting insulin once a day (4) Adrenal mass: Plan: - CTAP showing right adrenal mass measuring 5.4cm - per pt and family, this has not been found before; pt does have a remote hx of melanoma (~20 yrs ago, tx with excision and interferon) - recommend nonemergent MRI w/ contrast for f/u Plan Chronic stable medical problems: * HLD - continue home ezetimibe and rosuvastatin * Hx of melanoma * hypothyroid - continue synthroid Dispo: continued inpatient stay, advancing diet DVT proh: heparin BID daughter updated by phone 10/01 Admission and Anticipated Discharge Date Admission Date: October 01, 2023 Supervising Physician Co-Signing Physician Notes PA Supervision Note: I did not personally see or examine the patient today, but I verified all munguia points of STACIA Brooks's assessment and plan with the following exceptions/additions: None Subjective patient seen sitting up in bed. States that she feels much better today. Is anxious to eat, and get out of the hospital. Has been ambulating to the bathroom. Abdominal pain has improved. Stool frequency has decreased. Review of Systems Review of Systems: All systems reviewed & are unremarkable except as noted in Subjective Physical Exam Physical Exam: General: NAD, VS as above Resp: normal respiratory effort, lungs clear to auscultation CV: RRR, no murmur, Abd: normal bowel sounds, soft, Left lower quadrant tenderness much improved, still slight tenderness with deep palpation Extremities: Moves all extremities, no edema Neuro: A&O x3, Skin: intact, no lesions noted Results & Data Results & Data Vital Signs (Past 12 Hours) Vital Signs Temp Pulse Resp BP Pulse Ox O2 Del Method 10/02/23 08:05 36.6 C 74 20 150/80 H 92 Room Air Laboratory Results CBC and chemistry reviewed Urine culture reviewed PG Care Time/CCT Total # of Minutes Spent Total Time Spent with Patient: Total time spent is greater than 50% in coordination of care (as documented) at patient's floor/unit and/or counseling patient: Coding Level of Care Code 46123 SUB INP/OBS CARE 3/50MIN Diagnoses Diverticulitis K57.92 Hypertension I10 Diabetes mellitus E11.9 Adrenal mass E27.8
[2023-10-03 06:16] LABS: Hematocrit (blood only) 35.4 % (37.0-47.0); Hemoglobin 11.5 g/dl (12.0-16.0); Mean Corpuscular Hemoglobin 28.9 pg (25.0-34.0); Mean Corpuscular Hgb Conc 32.5 g/dL (32.0-36.0); Mean Corpuscular Volume 88.9 fL (80.0-100.0); Mean Platelet Volume 9.2 fL (9.4-12.4); Platelet Count 412 K/uL (130-400); RDW Coefficient of Variation 13.2 % (11.5-14.5); RDW Standard Deviation 42.9 fL (36.4-46.3); Red Blood Count 3.98 M/uL (4.20-5.40); White Blood Count 6.21 K/ul (4.8-10.8)
[2023-10-03 06:32] LABS: BUN Creatinine Ratio 6.6 (10-20); Creatinine Clr Calc Pharmacy 54.3 ml/min; Est GFR (African American) 70.5 ml/min; Est GFR (Non-African American) 60.9 ml/min; Magnesium 1.8 mg/dl (1.7-2.4); Potassium 2.8 mmol/L (3.5-5.1)
[2023-10-03] MEDS: lisinopril 20 MG TAB PO SCH (08:39)
[2023-10-03] MEDS: POTASSIUM CHLORIDE / WTR 10 MEQ/100 ML PLCT IV SCH (10:13)
[2023-10-03] MEDS: MAGNESIUM SULFATE / D5W 1 GM/100 ML BAG IV ONE (10:14)
[2023-10-03] MEDS: POTASSIUM CHLORIDE CRTAB 20 MEQ TABCR PO STA (10:42)
--- NOTE | 2023-10-03 12:32 | Hospitalist Progress Note ---
Date of Service October 03, 2023 Assessment & Plan (1) Diverticulitis: Plan: Pt is a 78 yo female with PMH of HLD, HTN, DM, and melanoma on her left leg (s/p resection and interferon tx ~20 yrs) who is admitted with acute sigmoid diverticulitis after failing outpatient antibiotic therapy with Cipro and Flagyl. She had been having chronic diarrhea for a long time, but had nausea and vomiting prior to admission and poor p.o. intake CT A/P showing inflammation of the sigmoid colon consistent with acute diverticulitis; it also notes a 5.4cm lesion of the right adrenal gland Has not been febrile, no leukocytosis or signs of sepsis. 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 She initially had bowel rest and has been advanced to low fiber diet as of the evening of 10/01-she is tolerating this but eating minimally Has not moved her bowels in 3 days since admission Generally feels fatigued and not yet ready to go home Continue Zosyn Continue prophylactic p.o. 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 I have placed a workload message to the nurse navigator to arrange this Tramadol and Tylenol as needed for pain (2) UTI (urinary tract infection): Plan: Patient also with abnormal urinalysis and urine culture growing Enterococcus faecalis resistant to ciprofloxacin, gentamicin, levofloxacin, streptomycin, and tetracycline. It is sensitive to ampicillin, daptomycin, nitrofurantoin, penicillin, vancomycin She is not sure if she had symptoms of this because she was having lower abdominal pains with the diverticulitis as well She was treated with Cipro and Flagyl for diverticulitis prior to admission but this bacteria is resistant to Cipro Zosyn will cover for this and then will switch to Augmentin for both UTI and diverticulitis after discharge (3) Hypokalemia: Plan: Potassium severely low and worse today at 2.8, magnesium low normal at 1.8 Give 1 g IV magnesium sulfate Give 40 mill equivalents p.o. potassium chloride and 30 mill equivalents of IV stat this morning Follow BMP and magnesium in the morning (4) Diabetes mellitus: Plan: Home regimen is Lantus 48u HS, 10u of short acting insulin at breakfast & lunch and 16u with dinner, weekly dulaglutide, and metformin-holding these meds patient states that she doesn't normally eat 3 meals a day and only take short acting insulin once a day Continue insulin glargine 20u BID and SSI (5) Hypertension: Plan: Blood pressures are mildly elevated continue home amlodipine and lisinopril (6) Adrenal mass: Plan: CT A/P showing right adrenal mass measuring 5.4cm Recommend nonemergent MRI w/ contrast for f/u Patient already has an upcoming appointment with endocrinology and this can be further evaluated at that time as well Plan Chronic stable medical problems: * HLD - continue home ezetimibe and rosuvastatin * Hx of melanoma remotely, follow-up with PCP * hypothyroid - continue synthroid, check TSH in the morning given chronic diarrhea Dispo: continued inpatient stay, possible discharge home tomorrow if improving DVT proh: heparin BID I discussed her care with her daughter, Brittney, on the phone on 10/02. Brittney's phone number is not listed in the contacts but is [phone] Admission and Anticipated Discharge Date Admission Date: October 01, 2023 Subjective Patient reports feeling very tired. She does not really have much left lower quadrant pain anymore-she would describe it as mild. No nausea. She is tolerating a low fiber diet but not eating very much because she does not feel very hungry. She feels like she has to move her bowels like there is pressure in the rectal area but only small amounts of mucus are coming out. She has not moved her bowels in 3 days since admission. No other concerns from a physical standpoint. She asks about the treatment plan moving forward and asked that I call her daughter. Physical Exam Constitutional: WD/WN, vitals as above Respiratory: normal respiratory effort, lungs clear to auscultation Cardiovascular: RRR, no murmur, no edema Gastrointestinal (Abdomen): Inspection/Auscultation: abdomen normal to inspection and normal bowel sounds; abdomen not distended Percussion/Palpation: + abdomen tender (Mild TTP in LLQ without guarding or rebound) and abdomen soft; no guarding Psychiatric: A+Ox3, euthymic affect Results & Data Results & Data Vital Signs (Past 12 Hours) Vital Signs Temp Pulse Resp BP Pulse Ox O2 Del Method 10/03/23 07:15 36.8 C 78 16 167/77 H 92 Room Air Laboratory Results CBC, BMP, magnesium reviewed PG Care Time/CCT Total # of Minutes Spent Total Time Spent with Patient: Total time spent is greater than 50% in coordination of care (as documented) at patient's floor/unit and/or counseling patient: Coding Level of Care Code 90325 SUB INP/OBS CARE 235MIN Diagnoses Diverticulitis K57.92 UTI (urinary tract infection) N39.0 Hypokalemia E87.6 Diabetes mellitus E11.9 Hypertension I10 Adrenal mass E27.8
[2023-10-04 06:18] LABS: Basophils # (auto) 0.05 K/uL (0.00-0.20); Basophils % (auto) 0.7 %; Eosinophils # (auto) 0.21 K/uL (0.00-0.50); Eosinophils % (auto) 3.1 %; Hematocrit (blood only) 36.7 % (37.0-47.0); Hemoglobin 11.9 g/dl (12.0-16.0); Immature Granulocytes # (auto) 0.04 K/uL (0.01-0.20); Immature Granulocytes % (auto) 0.6 %; Lymphocytes # (auto) 1.66 K/uL (1.20-3.40); Lymphocytes % (auto) 24.8 %; Mean Corpuscular Hemoglobin 28.8 pg (25.0-34.0); Mean Corpuscular Hgb Conc 32.4 g/dL (32.0-36.0); Mean Corpuscular Volume 88.9 fL (80.0-100.0); Mean Platelet Volume 9.2 fL (9.4-12.4); Monocytes # (auto) 0.62 K/uL (0.11-0.59); Monocytes % (auto) 9.3 %; Neutrophils # (auto) 4.11 K/uL (1.40-6.50); Neutrophils % (auto) 61.5 %; Platelet Count 435 K/uL (130-400); RDW Coefficient of Variation 13.3 % (11.5-14.5); RDW Standard Deviation 43.1 fL (36.4-46.3); Red Blood Count 4.13 M/uL (4.20-5.40); White Blood Count 6.69 K/ul (4.8-10.8)
[2023-10-04 06:32] LABS: Albumin Globulin Ratio 1.5 (0.9-2); Albumin Level 3.7 gm/dl (3.4-5.0); BUN Creatinine Ratio 9.2 (10-20); Bilirubin,Total 0.4 mg/dl (0.2-1.0); Creatinine Clr Calc Pharmacy 56.8 ml/min; Est GFR (African American) 74.5 ml/min; Est GFR (Non-African American) 64.3 ml/min; Globulin 2.4 gm/dl (2.5-4.0); Magnesium 1.9 mg/dl (1.7-2.4); Potassium 3.2 mmol/L (3.5-5.1); Total Protein 6.1 gm/dl (6.0-8.3)
[2023-10-04 06:46] LABS: Thyroid Stimulating Hormone 5.326 uIu/ml (0.300-4.500)
[2023-10-04] MEDS: CHERRY SYRUP 5 ML UDP PO SCH (07:16)
[2023-10-04] MEDS: VANCOMYCIN HCL 125 MG/2.5ML SOLN PO SCH (07:17)
[2023-10-04] MEDS: POTASSIUM CHLORIDE CRTAB 20 MEQ TABCR PO STA (10:08)
[2023-10-04] MEDS: POLYETHYLENE (MIRALAX) 17 GM PACK PO SCH ×2 (10:08→21:14)
--- NOTE | 2023-10-04 14:03 | Hospitalist Progress Note ---
Date of Service October 04, 2023 Assessment & Plan (1) Diverticulitis: Plan: Pt is a 78 yo female with PMH of HLD, HTN, DM, and melanoma on her left leg (s/p resection and interferon tx ~20 yrs) who is admitted with acute sigmoid diverticulitis after failing outpatient antibiotic therapy with Cipro and Flagyl. She had been having chronic diarrhea for a long time, but had nausea and vomiting prior to admission and poor p.o. intake CT A/P showing inflammation of the sigmoid colon consistent with acute diverticulitis; it also notes a 5.4cm lesion of the right adrenal gland Has not been febrile, no leukocytosis or signs of sepsis. 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 I have placed a workload message to the nurse navigator to arrange this Continue tramadol and Tylenol as needed for pain Add on MiraLAX twice daily scheduled and bisacodyl suppository daily as needed for constipation. Await bowel movement prior to discharge (2) UTI (urinary tract infection): Plan: Patient w/ abnormal UA; urine cx growing Enterococcus faecalis resistant to ciprofloxacin, gentamicin, levofloxacin, streptomycin, and tetracycline. It is sensitive to ampicillin, daptomycin, nitrofurantoin, penicillin, vancomycin She is not sure if she had symptoms of this because she was having lower abdominal pains with the diverticulitis as well She was treated with Cipro and Flagyl for diverticulitis prior to admission but this bacteria is resistant to Cipro Zosyn will cover for this and then will switch to Augmentin for both UTI and diverticulitis after discharge (3) Hypokalemia: Plan: Improving with replacement but remains mildly low Give potassium chloride 40 mEq p.o. x 1 today Follow BMP and magnesium in the morning (4) Diabetes mellitus: Plan: Home regimen is Lantus 48u HS, 10u of short acting insulin at breakfast & lunch and 16u with dinner, weekly dulaglutide, and metformin-holding these meds Continue insulin glargine 20u BID and SSI (5) Hypertension: Plan: Blood pressures are mildly elevated continue home amlodipine and lisinopril (6) Adrenal mass: Plan: CT A/P showing right adrenal mass measuring 5.4cm Recommend nonemergent MRI w/ contrast for f/u Patient already has an upcoming appointment with endocrinology and this can be further evaluated at that time as well-I discussed this with the patient and her daughter on the phone Plan Chronic stable medical problems: * HLD - continue home ezetimibe and rosuvastatin * Hx of melanoma remotely, follow-up with PCP * hypothyroid - continue synthroid, TSH here is normal Dispo: continued inpatient stay, possible discharge home tomorrow if improving and moving bowels DVT proh: heparin BID I discussed her care with her daughter, Brittney, on the phone on 10/02. Brittney's phone number is not listed in the contacts but is [phone] Admission and Anticipated Discharge Date Admission Date: October 01, 2023 Subjective Patient reports feeling more pain and pressure today in the lower abdomen and feels like she really needs to move her bowels but has not been able to yet. She is in the middle of drinking MiraLAX and prune juice. She is eating more of her low fiber diet and has a better appetite. Does not quite feel ready to go home yet Physical Exam Constitutional: WD/WN, vitals as above Respiratory: normal respiratory effort, lungs clear to auscultation Cardiovascular: RRR, no murmur, no edema Gastrointestinal (Abdomen): Inspection/Auscultation: abdomen normal to inspection and normal bowel sounds; abdomen not distended Percussion/Palpation: + abdomen tender (Mild TTP in lower abdomen without guarding or rebound) and abdomen soft; no guarding Psychiatric: A+Ox3, euthymic affect Results & Data Results & Data Vital Signs (Past 12 Hours) Vital Signs Temp Pulse Resp BP Pulse Ox O2 Del Method 10/04/23 07:07 36.7 C 75 16 151/80 H 95 Room Air Laboratory Results CBC, BMP, magnesium, TSH reviewed PG Care Time/CCT Total # of Minutes Spent Total Time Spent with Patient: Total time spent is greater than 50% in coordination of care (as documented) at patient's floor/unit and/or counseling patient: Coding Level of Care Code 49771 SUB INP/OBS CARE 2/35MIN Diagnoses Diverticulitis K57.92 UTI (urinary tract infection) N39.0 Hypokalemia E87.6 Diabetes mellitus E11.9 Hypertension I10 Adrenal mass E27.8
[2023-10-04] MEDS ORDERED: bisacodyL 10 MG SUPP PR PRN (18:08)
[2023-10-04 20:33] VITALS: PULSE 86
[2023-10-05 06:11] LABS: Basophils # (auto) 0.06 K/uL (0.00-0.20); Basophils % (auto) 0.7 %; Eosinophils # (auto) 0.22 K/uL (0.00-0.50); Eosinophils % (auto) 2.5 %; Hematocrit (blood only) 34.7 % (37.0-47.0); Hemoglobin 11.5 g/dl (12.0-16.0); Immature Granulocytes # (auto) 0.04 K/uL (0.01-0.20); Immature Granulocytes % (auto) 0.4 %; Lymphocytes # (auto) 1.59 K/uL (1.20-3.40); Lymphocytes % (auto) 17.8 %; Mean Corpuscular Hemoglobin 28.9 pg (25.0-34.0); Mean Corpuscular Hgb Conc 33.1 g/dL (32.0-36.0); Mean Corpuscular Volume 87.2 fL (80.0-100.0); Mean Platelet Volume 9.2 fL (9.4-12.4); Monocytes # (auto) 0.76 K/uL (0.11-0.59); Monocytes % (auto) 8.5 %; Neutrophils # (auto) 6.27 K/uL (1.40-6.50); Neutrophils % (auto) 70.1 %; Platelet Count 454 K/uL (130-400); RDW Coefficient of Variation 13.2 % (11.5-14.5); RDW Standard Deviation 41.9 fL (36.4-46.3); Red Blood Count 3.98 M/uL (4.20-5.40); White Blood Count 8.94 K/ul (4.8-10.8)
[2023-10-05 06:16] LABS: BUN Creatinine Ratio 9.5 (10-20); Creatinine Clr Calc Pharmacy 58.9 ml/min; Est GFR (African American) 77.7 ml/min; Magnesium 1.9 mg/dl (1.7-2.4); Potassium 2.8 mmol/L (3.5-5.1)
[2023-10-05 07:57] VITALS: BP 148/82; RESP 19; TEMP 97.7; O2SAT 96
[2023-10-05] MEDS: POTASSIUM CHLORIDE CRTAB 20 MEQ TABCR PO ONE (07:59)
--- NOTE | 2023-10-05 11:24 | Discharge Summary ---
Discharge Summary Date of Service October 05, 2023 Principal Dx & Hospital Course #1 = Principal Diagnosis (1) Diverticulitis: Pt is a 78 yo female with PMH of HLD, HTN, DM, and melanoma on her left leg (s/p resection and interferon tx ~20 yrs) who is admitted with acute sigmoid diverticulitis after failing outpatient antibiotic therapy with Cipro and Flagyl. She had been having chronic diarrhea for a long time, but had nausea and vomiting prior to admission and poor p.o. intake CT A/P showing inflammation of the sigmoid colon consistent with acute diverticulitis; it also notes a 5.4cm lesion of the right adrenal gland Has not been febrile, no leukocytosis or signs of sepsis. 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 She initially had bowel rest and has been advanced to low fiber diet as of the evening of 10/01-she is tolerating this and appetite starting to strip picker more Has not moved her bowels in 4 days since admission Has increased abdominal pressure and likely related to constipation at this point-would like her to move her bowels before returning home Continue Zosyn while inpatient and convert to Augmentin on discharge Continue prophylactic p.o. 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 I have placed a workload message to the nurse navigator to arrange this Continue tramadol and Tylenol as needed for pain Add on MiraLAX twice daily scheduled and bisacodyl suppository daily as needed for constipation. Await bowel movement prior to discharge (2) UTI (urinary tract infection): Patient w/ abnormal UA; urine cx growing Enterococcus faecalis resistant to ciprofloxacin, gentamicin, levofloxacin, streptomycin, and tetracycline. It is sensitive to ampicillin, daptomycin, nitrofurantoin, penicillin, vancomycin She is not sure if she had symptoms of this because she was having lower abdominal pains with the diverticulitis as well She was treated with Cipro and Flagyl for diverticulitis prior to admission but this bacteria is resistant to Cipro Zosyn will cover for this and then will switch to Augmentin for both UTI and diverticulitis after discharge (3) Hypokalemia: Improving with replacement but remains mildly low Give potassium chloride 40 mEq p.o. x 1 today Follow BMP and magnesium in the morning (4) Diabetes mellitus: Home regimen is Lantus 48u HS, 10u of short acting insulin at breakfast & lunch and 16u with dinner, weekly dulaglutide, and metformin-holding these meds Continue insulin glargine 20u BID and SSI (5) Hypertension: Blood pressures are mildly elevated continue home amlodipine and lisinopril (6) Adrenal mass: CT A/P showing right adrenal mass measuring 5.4cm Recommend nonemergent MRI w/ contrast for f/u Patient already has an upcoming appointment with endocrinology and this can be further evaluated at that time as well-I discussed this with the patient and her daughter on the phone Plan Chronic stable medical problems: * HLD - continue home ezetimibe and rosuvastatin * Hx of melanoma remotely, follow-up with PCP * hypothyroid - continue synthroid, TSH here is normal Dispo: Home today, October 04, on Augmentin for 1 more week. C. difficile toxin is negative so there is no need for oral vancomycin therapy at this time. Admission HPI Per Admitting Provider Pt is a 78 yo female with PMH of HLD, HTN, DM, and melanoma on her left leg (s/p resection and interferon tx ~20 yrs) presenting d/t continued abdominal pain. Pt note she has been sick for the last 2 weeks with abdominal pain, abdominal pressure, lack of appetite, and nausea/vomiting. She was evaluated ~a week ago at an outside ER where she was told she has diverticulosis and was given antibiotics (cipro and flagyl x7 days) to take in case she worsened. She began t aking the antibiotics and has almost completed both courses (only 3 pills left in each bottle). However, her symptoms have not improved which prompted her to present to the ER. She endorses continued left sided abdominal pain, N/V, and mucous discharge from her rectum. She thought she had a UTI due to the abdominal pressure but denies burning with urination and increased frequency of urination. Pt's family requesting a referral for local GI after hospital stay. Pt notes she has never had a colonoscopy and does not want one. In the ER, pt was given ketorolac 10 mg IV x1, zofran 4 mg IV x1, and zosyn x1. Discharge Exam General-alert and oriented x3, no fever, no chills HEENT-head atraumatic and normocephalic, pupils equal and reactive to light, extraocular muscles intact Neck-no lymphadenopathy or thyromegaly, trachea midline Chest-clear to auscultation. No rales, wheezing or rhonchi Cardiac-regular rate and rhythm, normal S1 and S2 Abdomen-normal bowel sounds, no hepatosplenomegaly Extremities-no cyanosis, clubbing, or edema Neuro-cranial nerves II through XII intact, motor and sensory function within normal limits, strength symmetrical, no focal deficits Psych-normal affect, normal mood Discharge Plan Discharge Items Patient Disposition: Home - Self-Care Reason For Visit: ACUTE DIVERTICULITIS Discharge Diagnosis: Acute diverticulitis, enterococcal UTI, incidental finding of right adrenal lesion Activity: Resume your previous activity Non-emergency contact: Primary Care Provider Call non-emergency contact if: you have any medication questions and your symptoms worsen Follow-up/Referrals: Lexus Reed M.D. [Primary Care Provider] - Diet: Carb Consistent or DM2 Addtl Attending Provider Instructions: Take amoxicillin/clavulanate antibiotic for 1 more week. Follow-up with primary care provider as soon as possible for further evaluation of right adrenal gland lesion Pending Studies at Discharge: No Stand-Alone Forms: [employer] Musical, Smoking Cessation Medications and DC Order Prescriptions: New amoxicillin-pot clavulanate 875-125 mg tablet 1 tab PO BID Qty: 14 0RF Continued amlodipine 5 mg tablet 5 mg PO DAILY levothyroxine 75 mcg tablet 75 mcg PO DAILYBB latanoprost 0.005 % drops 1 drp OPB HS lisinopril 20 mg tablet 20 mg PO DAILY ezetimibe 10 mg tablet 10 mg PO DAILY rosuvastatin 40 mg tablet 40 mg PO DAILY Trulicity 0.75 mg/0.5 mL Pen Injector 0.75 mg SUBCUT WK Rx Instructions: Take this med every Thursday sal ondansetron 4 mg tablet,disintegrating 4 mg PO Q6H PRN (Reason: Nausea) insulin glargine [Lantus Solostar U-100 Insulin] 100 unit/mL (3 mL) Insulin Pen 44 unit SUBCUT PM insulin lispro [Humalog KwikPen Insulin] 100 unit/mL Insulin Pen 0 unit SUBCUT TIDM Rx Instructions: TAKE 10 UNITS WITH BREAKFAST, TAKE 10 UNITS WITH LUNCH, TAKE 16 UNITS WITH EVENING MEAL. metformin 500 mg Tablet 1,000 mg PO BID Rx Instructions: THIS MED ORDERED 1000MG BID, PT REPORTS SHE TAKES 1000MG WEEKLY Discontinued metronidazole 500 mg tablet 500 mg PO BID Rx Instructions: BEGIN 09/24/23 X 7 DAYS ciprofloxacin HCl 500 mg tablet 500 mg PO TID Rx Instructions: BEGIN 09/24/23 X 7 DAYS Discharge Orders: Discharge Order (Routine); Ordered 10/05/23 Ordered By: Adam Romano Admission Data Admit Date/Time: 10/01/23 01:19 Attending Provider: Adam Romano Admit Provider: Kaia Hu Primary Care Provider: Lexus Reed Other Providers: Bryan Ospina Hospital Stay Data Consultations 10/01/23 00:20 ED Decision to Admit Stat Diagnostic Imagining Performed 09/30/23 19:02 CT Abd and Pelvis [CT abd pelvis IV con only] Stat Pending Results Patient Have Any Pending Studies at Discharge: No Discharge Instructions Given to Patient (Per Discharging Provider) Take amoxicillin/clavulanate antibiotic for 1 more week. Follow-up with primary care provider as soon as possible for further evaluation of right adrenal gland lesion Total Time Total Time Spent Total Time Spent (In Minutes): 45 minutes Coding Level of Care Code 34345 INP/OBS DISCH >30 MIN Diagnoses Diverticulitis K57.92 UTI (urinary tract infection) N39.0 Hypokalemia E87.6 Diabetes mellitus E11.9 Hypertension I10 Adrenal mass E27.8
== END 2023-10-05 14:37 | disposition home or self-care (01) | DRG 392 ==
LOC: ED 18:47 → SUATTDRO 10-01 01:19 → 3E 10-01 01:19